=== PATIENT | female | born 1955 | race Caucasian/White ===

== ENCOUNTER 2018-06-28 09:16 | Inpatient (IN) | payer BC ==
[2018-06-28 09:30] VITALS: BMI 21.9
--- NOTE | 2018-06-28 09:38 | PDOC ---
History of Present Illness - General Chief Complaint: Vomiting/Diarrhea Stated Complaint: COLD SYMPTOMS Time Seen by Provider: 06/28/18 09:37 History Source: Patient Exam Limitations: No Limitations - History of Present Illness Initial Comments: 06/28/18 11:11 62 year old woman with no significant medical history presents with 10 episodes of nbnb vomiting and 10 episodes of watery diarrhea, that onset at around midnight after eating duck, reid, and creme brulee at a restaurant. She notes associated lower abdominal and upper abdominal cramping rated at a scale of 5/ 10. She denies any fevers, chest pain shortness of breath. She denies taking any medications. She denies any recent travel. Past History - Past Medical History Allergies/Adverse Reactions: Allergies Allergy/AdvReac Type Severity Reaction Status Date / Time tramadol [From [facility]] Allergy Verified 06/28/18 09:29 Home Medications: Ambulatory Orders Acetaminophen [Tylenol .Regular Strength -] 650 mg PO Q6H PRN #42 tablet Ibuprofen [Motrin -] 600 mg PO Q6H PRN #21 tablet 07/02/18 COPD: No - Suicide/Smoking/Psychosocial Hx Smoking History: Never smoked Review of Systems - Review of Systems Able to Perform ROS?: Yes Is the patient limited Tajik proficient: No Constitutional: No: Chills, Diaphoresis, Fever HEENTM: No: Blurred Vision, Tinnitus Respiratory: No: Cough, Orthopnea, Shortness of Breath Cardiac (ROS): No: Chest Pain, Lightheadedness, Palpitations, Syncope ABD/GI: Yes: Diarrhea, Nausea, Vomiting. No: Constipated : No: Burning, Dysuria, Hematuria, Incontinence Musculoskeletal: No: Back Pain Neurological: No: Headache, Numbness, Paresthesia, Tingling *Physical Exam - Vital Signs Last Vital Signs Temp Pulse Resp BP Pulse Ox 98 F 103 H 20 155/89 99 06/28/18 09:18 06/28/18 09:18 06/28/18 09:18 06/28/18 09:18 06/28/18 09:18 - Physical Exam Comments: 06/28/18 12:22 GENERAL: Awake, alert, and fully oriented, in no acute distress HEAD: No signs of trauma, normocephalic, atraumatic EYES: EOMI, sclera anicteric, conjunctiva clear ENT: oropharynx clear without exudates. Moist mucosa NECK: Normal ROM, supple, LUNGS: No distress, speaks full sentences, clear to auscultation bilaterally HEART: Regular rate and rhythm, normal S1 and S2, no murmurs, rubs or gallops, peripheral pulses normal and equal bilaterally. ABDOMEN: Soft, nontender, normoactive bowel sounds. No guarding, no rebound. No masses EXTREMITIES : Normal inspection, Normal range of motion, no edema. No clubbing or cyanosis. NEUROLOGICAL: Cranial nerves II through XII grossly intact. Normal speech, normal gait, no focal sensorimotor deficits SKIN: Warm, Dry, normal turgor, no rashes or lesions noted Moderate Sedation - Procedure Monitoring Vital Signs: Procedure Monitoring Vital Signs Temperature 98 F 06/28/18 09:18 Pulse Rate 103 H 06/28/18 09:18 Respiratory Rate 20 06/28/18 09:18 Blood Pressure 155/89 06/28/18 09:18 O2 Sat by Pulse Oximetry (%) 99 06/28/18 09:18 ED Treatment Course - LABORATORY CBC & Chemistry Diagram: 07/02/18 07:35 07/02/18 07:35 Medical Decision Making - Medical Decision Making 06/28/18 12:22 62 year old woman with no significant medical history presents with 10 episodes of nbnb vomiting and 10 episodes of watery diarrhea, that onset at around midnight after eating duck, reid, and creme brulee at a restaurant. She notes associated lower abdominal and upper abdominal cramping rated at a scale of 5/ 10. She denies any fevers. She denies taking any medications. She denies any recent travel. ED Course: viral gastroenteritis vs pancreatiits r/o acs cbc, cmp, elg labwork wnl neutrophil % 96 concerning for bacterial cause will order Abd Pelvis CT 06/28/18 17:08 CT with concern for appendicitis Surgery Dr. Santos called evaluated patient concern for early appendicitis Patient with low grade temperature and tachycardia Patient desires to wait until tomorrow rather than undergo surgery tonight Will admit patient for observation *DC/Admit/Observation/Transfer Diagnosis at time of Disposition: Appendicitis Qualifiers: Appendicitis type: acute appendicitis Acute appendicitis type: other Qualified Code(s): K35.890 - Other acute appendicitis without perforation or gangrene - Discharge Dispostion Disposition: HOME Condition at time of disposition: Improved Decision to Admit order: Yes - Prescriptions - Referrals - Patient Instructions - Post Discharge Activity
[2018-06-28] MEDS ORDERED: ONDANSETRON 4 MG/2 ML VIAL IVPUSH ONE ×2 (10:30→16:38)
[2018-06-28] MEDS ORDERED: SODIUM CHLORIDE 1,000 ML IV SCH ×3 (10:30→15:15)
[2018-06-28] MEDS ORDERED: ONDANSETRON 4 MG/2 ML VIAL ONE ×3 (10:32→19:54)
[2018-06-28 10:50] LABS: BASO % 0.3 % (0-2.0); HEMATOCRIT 48.1 % (32.4-45.2); HEMOGLOBIN 16.8 GM/dL (10.7-15.3); LYMPH % 1.5 % (8-40); MCH 31.6 pg (25.7-33.7); MCHC 34.9 g/dl (32.0-36.0); MEAN CELL VOLUME 90.5 fl (80-96); MEAN PLT VOLUME 8.7 fl (7.5-11.1); MONO % 2.2 % (3.8-10.2); PLATELET COUNT 184 K/MM3 (134-434); RBC 5.31 M/mm3 (3.60-5.2); RDW 13.1 % (11.6-15.6); WHITE BLOOD COUNT 10.2 K/mm3 (4.0-10.0)
[2018-06-28 11:18] LABS: ALBUMIN 4.6 g/dl (3.4-5.0); ALK PHOS 181 U/L (45-117); ANION GAP 6 MMOL/L (8-16); BILIRUBIN,TOTAL 1.3 mg/dL (0.2-1); BLOOD UREA NITROGEN 17 mg/dL (7-18); CALCIUM 9.5 mg/dL (8.5-10.1); CHLORIDE 102 mmol/L (98-107); CO2 29 mmol/L (21-32); CREATININE 0.7 mg/dL (0.55-1.3); GLUCOSE,RANDOM 155 mg/dL (74-106); POTASSIUM 3.8 mmol/L (3.5-5.1); SGOT/AST 20 U/L (15-37); SGPT/ALT 27 U/L (13-61); SODIUM 138 mmol/L (136-145); TOT PROT 7.7 g/dl (6.4-8.2)
[2018-06-28 11:32] LABS: LIPASE 104 U/L (73-393)
--- NOTE | 2018-06-28 12:28 | PDOC ---
Attending Attestation - HPI HPI: 06/28/18 12:29 The patient is a 62 year old female, with no significant past medical history, who presents to the emergency department today with vomiting and diarrhea, that began last night. The patient reports she ate Pt and creme brulee at a restaurant last night, and when she returned home she began vomiting at 11:30 pm. The patient notes she experienced 10x episodes of vomiting, nonbilious and nonbloody, and 10x episodes of watery diarrhea, nonbloody. The patient notes associated chills and headache. The patient reports a lower abdominal pain and tenderness that she has experienced previously.The patient reports she tried to see her PCP but he advised her to come to the ER because she could not tolerate any PO intake. The patient denies recent fevers or dizziness. Denies recent dysuria, frequency, urgency or hematuria. Denies recent chest pain or shortness of breath. Allergies: tramadol Past surgical history: Hysterectomy Primary Care Physician: Dr. Ghanshyam Mcdonald # [phone] <Leti Van - Last Filed: 06/28/18 12:43> - Resident Resident Name: Ary Martínez - ED Attending Attestation I have performed the following: I have examined & evaluated the patient, The case was reviewed & discussed with the resident, I agree w/resident's findings & plan, Exceptions are as noted - Physicial Exam PE: 06/28/18 12:23 awake alert NAD dry mucous membranes. lungs clear bilaterally . heart reg tachycardia. abd soft ( mild suprapubic rlq ttp. pt states is chronic ) otherwise nt nd. ext wwp no edema. no calf tenderness skin warm and dry. - Medical Decision Making 06/28/18 12:24 62 yo F no pmhx here with c/o multiple episodes of nonbilious nonbloody vomiting and diarrhea, no sick contacts. felt was from food she ate at a restaurat. also c/o mild headahce. body aches and chills. no urinary complaints. no mod factors. 06/28/18 12:26 on exam pt mild tenderness states this pain is chronic she has had ever since her hysterectomy. has been evaluated in the past with us. differential viral gasritis ( likley as multiple pt with same sxs seen recently) pancreatitis. dehydration electrolyte abnormality. plan zofran, fluids, labs, reassess. 06/28/18 13:23 pt feeling much improved. dc home. labs all unremarkable. dc home. 06/28/18 14:12 pt with left shift 90 nuetrophils on WBC, will obtain cta/p r/o ilieitis, colitis or appendicitis. pt unable to provide stool sample. ua sent to r/o uti. <Pau Ang - Last Filed: 06/28/18 14:13> Attestations - Attestations 06/28/18 12:43 Documentation prepared by Leti Van, acting as director medical economics for Pau Ang MD. <Leti Van - Last Filed: 06/28/18 12:43>
[2018-06-28 12:58] LABS: ANISOCYTOSIS 0; HELMET CELLS 0; HOWELL-JOLLY BODIES 0; MACROCYTOSIS 0; OVALOCYTE 0; PLATELET ESTIMATE NORMAL; ROULEAU 0; SICKELED CELLS 0; TARGET CELLS 0; TEAR DROP CELLS 0; TOXIC GRANULATION 0
[2018-06-28 14:14] LABS: URINE APPEARANCE CLEAR; URINE BILIRUBIN NEGATIVE (<2.0 mg/dL); URINE COLOR YELLOW; URINE GLUCOSE (UA) NEGATIVE (NEGATIVE); URINE KETONE 1+ (NEGATIVE); URINE LEUK ESTERASE NEGATIVE (NEGATIVE); URINE NITRITE NEGATIVE (NEGATIVE); URINE PROTEIN NEGATIVE (NEGATIVE); URINE UROBILINOGEN NEGATIVE mg/dL (0.2-1.0)
[2018-06-28 14:21] LABS: URINE MUCUS RARE
--- NOTE | 2018-06-28 17:10 | CONSULT ---
Consult Consult Specialty:: General Surgery Referred by:: Dr. Martínez Reason for Consultation:: n/v, diarrhea, ?appendicitis - History of Present Illness Chief Complaint: n/v, diarrhea, chills, abd pain History of Present Illness: 62yo F with no sig PMH, surgical history significant for tonsillectomy and lap- assisted/open partial hysterectomy with BSO, who has intermittent RLQ pain since then, investigated by her doctors with US, hernia ruled out, thought to be maybe gas pains or something related to her previous surgery, but comes and goes without clear pattern; she presents with onset around midnight of headache , followed by N/V, diarrhea, and chills, with repeating cycles of same, prompting ER visit today. She describes pain/discomfort with straining to defecate, but that goes away once she is done. Diarrhea was brown, then loose, then yellowish. Vomiting was her dinner from last night. 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 She takes no regular meds, and has no urinary complaints; she also has some upper abdominal pain/discomfort after all the vomiting, and has had some discomfort in her upper back as well. She feels very dry and thirsty, and is also feeling some nasal congestion, which she thinks might be from allergies. In the ER, she was initially afebrile , with wbc 10.6, left shifted, Hb elevated at almost 17, ketones in urine, consistent with dehydration, and has had Zofran with improvement in her nausea. She has had Percocet in the past (with hyst) and states she does NOT react well to it, and does not want narcotics if possible. Tramadol causes a rash/ breakout. CT was done with IV but no oral contrast, showing some retained stool , mildly dilated small and large bowel but no clear obstruction, appendix difficult to identify without enteral contrast, but possibly a dilated loop next to the cecum which could be an abnormal appendix. This was reviewed with radiology and noted to be suggestive of an appendix with a dilated tip at almost 10mm, though surrounding fat is not clearly abnormal, consistent with possible early appendicitis. Surgery was asked to evaluate. She is seen and examined in ER holding, with the above history elicited. She is still feeling chilled, temp is ~100F; IV fluids are running. - History Source Limitations to Obtaining History: No Limitations - Past Medical History Reproductive: Yes: Postmenopausal - Past Surgical History Past Surgical History: Yes: Hysterectomy (laparoscopic-assisted/open partial hyst with BSO 2004), Oopherectomy, Tonsillectomy - Alcohol/Substance Use Hx Alcohol Use: Yes (social) History of Substance Use: reports: None - Smoking History Smoking history: Former smoker (from age [age] only) Have you smoked in the past 12 months: No - Social History Usual Living Arrangement: Alone ADL: Independent Occupation: stenographic court reporter Home Medications - Allergies Allergies/Adverse Reactions: Allergies Allergy/AdvReac Type Severity Reaction Status Date / Time tramadol [From Ultram] Allergy Verified 06/28/18 09:29 - Home Medications Home Medications (free text): NO home meds - ER Rx will be d/c'd Family Disease History - Family Disease History Family History: Unremarkable (noncontributory) Review of Systems - Review of Systems Constitutional: reports: Chills Eyes: reports: Other (uses reading glasses). denies: Recent Change in Vision HENT: reports: Nasal Congestion. denies: Difficult Swallowing, Throat Pain Neck: denies: Swollen Glands, Tenderness Cardiovascular: denies: Chest Pain, Palpitations Respiratory: denies: Cough, SOB Gastrointestinal: reports: Abdominal Pain, Diarrhea (with hpi), Nausea (with hpi ), Vomiting (with hpi). denies: Constipation Genitourinary: denies: Burning, Dysuria Musculoskeletal: reports: Back Pain (between shoulder blades, ?from vomiting). denies: Joint Pain, Muscle Pain Integumentary: denies: Change in Color, Rash Neurological: reports: Headache. denies: Dizziness Psychiatric: denies: Anxiety, Depression Physical Exam Vital Signs: Vital Signs Temperature 98 F 06/28/18 09:18 Pulse Rate 103 H 06/28/18 09:18 Respiratory Rate 20 06/28/18 09:18 Blood Pressure 155/89 06/28/18 09:18 O2 Sat by Pulse Oximetry (%) 99 06/28/18 10:55 Constitutional: Yes: Well Nourished, No Distress, Calm Eyes: Yes: Conjunctiva Clear, EOM Intact HENT: Yes: Atraumatic, Normocephalic Neck: Yes: Supple, Trachea Midline Cardiovascular: Yes: Tachycardia. No: Pulse Irregular Respiratory: Yes: Regular, CTA Bilaterally Gastrointestinal: Yes: Soft, Hypoactive Bowel Sounds, Tenderness (mild epigastric, mild RLQ just above right end of Pfannenstiel scar, focal without rebound or guarding), Other (well-healed Pfannenstiel and umbilical laparoscopic scars). No: Distention, Vomiting ...Rectal Exam: Yes: Deferred Renal/: No: CVA Tenderness - Left, CVA Tenderness - Right Musculoskeletal: No: Joint Stiffness, Joint Swelling Extremities: No: Cool, Cyanosis Edema: No Peripheral Pulses WNL: Yes Integumentary: No: Jaundice, Rash Neurological: Yes: Alert, Oriented Psychiatric: Yes: Alert, Oriented Labs: CBC, BMP 06/28/18 10:44 06/28/18 10:44 CMP Sodium 138 mmol/L (136-145) 06/28/18 10:44 Potassium 3.8 mmol/L (3.5-5.1) 06/28/18 10:44 Chloride 102 mmol/L (98-107) 06/28/18 10:44 Carbon Dioxide 29 mmol/L (21-32) 06/28/18 10:44 Anion Gap 6 MMOL/L (8-16) L 06/28/18 10:44 BUN 17 mg/dL (7-18) 06/28/18 10:44 Creatinine 0.7 mg/dL (0.55-1.3) 06/28/18 10:44 Creat Clearance w eGFR > 60 (>60) 06/28/18 10:44 Random Glucose 155 mg/dL (74-106) H 06/28/18 10:44 Calcium 9.5 mg/dL (8.5-10.1) 06/28/18 10:44 Total Bilirubin 1.3 mg/dL (0.2-1) H 06/28/18 10:44 AST 20 U/L (15-37) 06/28/18 10:44 ALT 27 U/L (13-61) 06/28/18 10:44 Alkaline Phosphatase 181 U/L (45-117) H 06/28/18 10:44 Total Protein 7.7 g/dl (6.4-8.2) 06/28/18 10:44 Albumin 4.6 g/dl (3.4-5.0) 06/28/18 10:44 Lipase 104 U/L (73-393) 06/28/18 10:44 Urine Test Results Urine Color Yellow 06/28/18 14:03 Urine Appearance Clear 06/28/18 14:03 Urine pH 6.0 (5.0-8.0) 06/28/18 14:03 Ur Specific [place] 1.021 (1.010-1.035) 06/28/18 14:03 Urine Protein Negative (NEGATIVE) 06/28/18 14:03 Urine Glucose (UA) Negative (NEGATIVE) 06/28/18 14:03 Urine Ketones 1+ (NEGATIVE) H 06/28/18 14:03 Urine Blood 1+ (NEGATIVE) H 06/28/18 14:03 Urine Nitrite Negative (NEGATIVE) 06/28/18 14:03 Urine Bilirubin Negative (<2.0 mg/dL) 06/28/18 14:03 Ur Leukocyte Esterase Negative (NEGATIVE) 06/28/18 14:03 Urine Mucus Rare 06/28/18 14:03 dehydrated by labs wbc left shifted (>90% neutrophils) UA dry but negative Imaging - Results Cat Scan: Report Reviewed, Image Reviewed (images personally reviewed and reviewed with Dr. Moy/RAD - no enteral contrast, appendix appears to have dilated tip at 10mm, no clear surrounding inflammatory changes but difficult to evaluate, no obstruction, no free air or fluid) Problem List - Problems (1) Right lower quadrant abdominal tenderness without rebound tenderness Assessment/Plan: possibly early appendicitis patient offered laparoscopic possible open appendectomy tonight she prefers to wait and see how she feels by tomorrow ok for observation on medical service strict NPO - no ice chips, no water, no meds generous IV fluid hydration trend labs in am, obtain PT, T&S in am NO antibiotics NO narcotics ok for IV tylenol prn for pain if needed serial exams VS q4H GI/DVT prophylaxis will follow up in am please call if pt's condition changes or deteriorates abruptly Code(s): R10.813 - RIGHT LOWER QUADRANT ABDOMINAL TENDERNESS (2) Dehydration Assessment/Plan: see above, IVF Code(s): E86.0 - DEHYDRATION (3) Nausea and vomiting Assessment/Plan: zofran prn ok Code(s): R11.2 - NAUSEA WITH VOMITING, UNSPECIFIED Qualifiers: Vomiting type: unspecified Vomiting Intractability: non-intractable Qualified Code(s): R11.2 - Nausea with vomiting, unspecified (4) Diarrhea Assessment/Plan: check stool studies - culture, O&P, wbc Code(s): R19.7 - DIARRHEA, UNSPECIFIED Qualifiers: Diarrhea type: functional diarrhea Qualified Code(s): K59.1 - Functional diarrhea
--- NOTE | 2018-06-28 17:50 | HP ---
CHIEF COMPLAINT: right lower abdomen pain, nausea, vomiting with dry heaving PCP:Dr. Ghanshyam Mcdonald HISTORY OF PRESENT ILLNESS: Patient is a 62 year old female with no significant past medical history and on no home medications. She presents to [facility] with reports of approximately 10 episodes of nausea, vomiting (nonbilious and nonbloody) with dry heaving and watery diarrhea, nonbloody. She tells me that this started at midnight after going out and eating at a restaurant. Since then she has had lower abdominal pain and tenderness and abdominal cramping. ER labs reveal normal electrolyte panel, K 3.8, normal kidney function. She was noted to have an elevated bili of 1.3 and alk phos of 181. Mild leukocytosis with hemoconcentration and elevated neutrophils. An abdomen/ct scan without contrast shows dilated loops in adjacent to the cecum that could represent an abnormal appendix. She was seen and evaluated by surgery. Notes reviewed. Patient to consider surgical options tomorrow. We will fluid resuscitate patient, monitor vitals q4, manage her pain with IV tylenol and manage nausea/vomiting with zofran and IV hydration. She will be keep as a strict NPO overnight. Further plans per surgery. POC reviewed with patient who is in agreement. ER notable for: (1) stable vitals, afebrile (2) abd ct montero with possible abnormal appendix. (3) Recent Travel: none reported PAST MEDICAL HISTORY: none reported PAST SURGICAL HISTORY: Hysterectomy Social History: Smoking: none Alcohol: none Drugs: none Family History: Allergies tramadol [From Ultram] Allergy (Verified 06/28/18 09:29) HOME MEDICATIONS: none REVIEW OF SYSTEMS PHYSICAL EXAMINATION Vital Signs - 24 hr 06/28/18 06/28/18 09:18 10:55 Temperature 98 F Pulse Rate 103 H Respiratory 20 Rate Blood Pressure 155/89 O2 Sat by Pulse 99 99 Oximetry (%) GENERAL: Awake, alert, and fully oriented, in no acute distress. HEAD: Normal with no signs of trauma. EYES: Pupils equal, round and reactive to light, extraocular movements intact, sclera anicteric, conjunctiva clear. No lid lag. EARS, NOSE, THROAT: Ears normal, nares patent, oropharynx clear without exudates.dry mucous membranes. NECK: Normal range of motion, supple without lymphadenopathy, JVD, or masses. LUNGS: Breath sounds equal, clear to auscultation bilaterally. No wheezes, and no crackles. No accessory muscle use. HEART: Regular rate and rhythm, normal S1 and S2 without murmur, rub or gallop. ABDOMEN: Soft, tender on right upper and lower quadrants. no distention. MUSCULOSKELETAL: Normal range of motion at all joints. No bony deformities or tenderness. No CVA tenderness. UPPER EXTREMITIES: No clubbing. No peripheral edema. LOWER EXTREMITIES: No calf tenderness. No peripheral edema. NEUROLOGICAL: Normal speech. Normal gait. PSYCHIATRIC: Cooperative. Good eye contact. Appropriate mood and affect. SKIN: Warm, dry, normal turgor, no rashes or lesions noted, normal capillary refill. Laboratory Results - last 24 hr 06/28/18 06/28/18 06/28/18 10:44 10:44 14:03 WBC 10.2 H RBC 5.31 H Hgb 16.8 H Hct 48.1 H MCV 90.5 MCH 31.6 MCHC 34.9 RDW 13.1 Plt Count 184 MPV 8.7 Absolute Neuts (auto) 9.8 H Neutrophils % 96.0 H Neutrophils % (Manual) 94.0 H Band Neutrophils % 2.0 Lymphocytes % 1.5 L Lymphocytes % (Manual) 1.0 L Monocytes % 2.2 L Monocytes % (Manual) 3 L Eosinophils % 0.0 Eosinophils % (Manual) 0.0 Basophils % 0.3 Basophils % (Manual) 0.0 Myelocytes % (Man) 0 Promyelocytes % (Man) 0 Blast Cells % (Manual) 0 Nucleated RBC % 0 Metamyelocytes 0 Hypochromia 0 Toxic Granulation 0 Dohle Bodies 0 Platelet Estimate Normal Polychromasia 0 Poikilocytosis 0 Basophilic Stippling 0 Anisocytosis 0 Microcytosis 0 Macrocytosis 0 Spherocytes 0 Sickle Cells 0 Target Cells 0 Tear Drop Cells 0 Ovalocytes 0 Stomatocytes 0 Helmet Cells 0 [place] Bodies 0 [place] Rings 0 [place] Cells 0 Acanthocytes (Spur) 0 Rouleaux 0 Fragmented RBCs 0 Schistocytes 0 Sodium 138 Potassium 3.8 Chloride 102 Carbon Dioxide 29 Anion Gap 6 L BUN 17 Creatinine 0.7 Creat Clearance w eGFR > 60 Random Glucose 155 H Calcium 9.5 Total Bilirubin 1.3 H AST 20 ALT 27 Alkaline Phosphatase 181 H Total Protein 7.7 Albumin 4.6 Lipase 104 Urine Color Yellow Urine Appearance Clear Urine pH 6.0 Ur Specific [place] 1.021 Urine Protein Negative Urine Glucose (UA) Negative Urine Ketones 1+ H Urine Blood 1+ H Urine Nitrite Negative Urine Bilirubin Negative Urine Urobilinogen Negative Ur Leukocyte Esterase Negative Urine WBC (Auto) 1 Urine RBC (Auto) 7 Urine Mucus Rare ASSESSMENT/PLAN: Patient is a 62 year old female with no significant past medical history and on no home medications. She presents to [facility] with reports of approximately 10 episodes of nausea, vomiting with dry heaving. She tells me that this started at midnight after going out and eating at a restaurant. Since then she has had lower abdominal pain and tenderness and abdominal cramping. ER labs reveal normal electrolyte panel, K 3.8, normal kidney function. She was noted to have an elevated bili of 1.3 and alk phos of 181. Mild leukocytosis with hemoconcentration and elevated neutrophils. Normal lipase. An abdomen/ct montero without contrast shows dilated loops in adjacent to the cecum that could represent an abnormal appendix. She was seen and evaluated by surgery. Notes reviewed. Patient to consider surgical options tomorrow. We will fluid resuscitate patient, monitor vitals q4, manage her pain with IV tylenol and manage nausea/vomiting with zofran and IV hydration. She will be keep as a strict NPO overnight. Further plans per surgery. POC reviewed with patient who is in agreement. Abdominal pain: Abnormal appendix seen on CT imaging. Patient to consider surgery tomorrow, refusing surgical interventions today. She is on LR @ 125cc/hr, zofran for nausea. protonix for GI protection. Stool studies ordered. Will prep for OR: - blood cultures - urine cultures - chest xray - type and screen - pt/inr - ekg - monitor vitals q 4 hours ordered - pain management with tylenol IV - incentive spirometer early teaching fen Lactate Ringers @ 125cc/hr Monitor electrolytes daily NPO, advance diet per surgery prophy SCDs disposition. full code. Visit type - Emergency Visit Emergency Visit: Yes ED Registration Date: 06/28/18 Care time: The patient presented to the Emergency Department on the above date and was hospitalized for further evaluation of their emergent condition. - New Patient This patient is new to me today: Yes Date on this admission: 06/28/18 - Critical Care Critical Care patient: No
[2018-06-28] MEDS ORDERED: LACTATED RINGERS SOLUTION 1,000 ML/1,000 ML INFUS.BAG IV SCH (18:00)
[2018-06-28] MEDS ORDERED: PANTOPRAZOLE SODIUM 40 MG VIAL IVPUSH ONE (18:09)
[2018-06-28] MEDS ORDERED: ACETAMINOPHEN 1000 MG/100 ML VIAL (NON FORMULARY) IVPB PRN (18:09)
[2018-06-28] MEDS ORDERED: PANTOPRAZOLE SODIUM 40 MG/100 ML BAG IVPB ONE (18:11)
[2018-06-28] MEDS ORDERED: ONDANSETRON 4 MG/2 ML VIAL IVPUSH PRN ×2 (18:45→20:34)
[2018-06-28] MEDS ORDERED: LORazepam 2 MG/ML SDV VIAL IVPUSH ONE (20:34)
[2018-06-28] MEDS: LACTATED RINGERS SOLUTION 1,000 ML/1,000 ML INFUS.BAG IV SCH (21:59)
[2018-06-28] MEDS: ACETAMINOPHEN 1000 MG/100 ML VIAL (NON FORMULARY) IVPB PRN (21:59)
--- NOTE | 2018-06-28 22:04 | EKG ---
Test Reason : Blood Pressure : / mmHG Vent. Rate : 093 BPM Atrial Rate : 093 BPM P-R Int : 148 ms QRS Dur : 084 ms QT Int : 358 ms P-R-T Axes : 048 -09 027 degrees QTc Int : 445 ms NORMAL SINUS RHYTHM NONSPECIFIC ST AND T WAVE ABNORMALITY ABNORMAL ECG NO PREVIOUS ECGS AVAILABLE Confirmed by CRYS MOSCOSO, ALMA DELIA ([id number]) on 06/28/2018 10:03:47 PM Referred By: Confirmed By:ALMA DELIA SPANGLER MD
[2018-06-29] MEDS: ACETAMINOPHEN 1000 MG/100 ML VIAL (NON FORMULARY) IVPB PRN (06:21)
[2018-06-29 08:29] LABS: BASO % 0.1 % (0-2.0); HEMATOCRIT 35.5 % (32.4-45.2); HEMOGLOBIN 12.1 GM/dL (10.7-15.3); LYMPH % 5.6 % (8-40); MCH 30.6 pg (25.7-33.7); MCHC 33.9 g/dl (32.0-36.0); MEAN CELL VOLUME 90.2 fl (80-96); MEAN PLT VOLUME 8.6 fl (7.5-11.1); MONO % 9.6 % (3.8-10.2); NEUT % 84.7 % (42.8-82.8); PLATELET COUNT 143 K/MM3 (134-434); RBC 3.94 M/mm3 (3.60-5.2); RDW 12.9 % (11.6-15.6); WHITE BLOOD COUNT 6.5 K/mm3 (4.0-10.0)
[2018-06-29 08:44] LABS: INR 1.17 (0.83-1.09); PROTHROMBIN TIME (PATIENT) 13.8 SEC (9.7-13.0)
[2018-06-29 08:54] LABS: ALBUMIN 3.2 g/dl (3.4-5.0); ALK PHOS 116 U/L (45-117); ANION GAP 7 MMOL/L (8-16); BILIRUBIN,TOTAL 0.7 mg/dL (0.2-1); BLOOD UREA NITROGEN 8 mg/dL (7-18); CALCIUM 8.2 mg/dL (8.5-10.1); CHLORIDE 108 mmol/L (98-107); CO2 26 mmol/L (21-32); CREATININE 0.6 mg/dL (0.55-1.3); GLUCOSE,RANDOM 101 mg/dL (74-106); MAGNESIUM 1.8 mg/dL (1.8-2.4); POTASSIUM 3.4 mmol/L (3.5-5.1); SGOT/AST 10 U/L (15-37); SGPT/ALT 18 U/L (13-61); SODIUM 140 mmol/L (136-145); TOT PROT 5.4 g/dl (6.4-8.2)
[2018-06-29] MEDS: PANTOPRAZOLE SODIUM 40 MG VIAL IVPUSH SCH (10:58)
[2018-06-29] MEDS: KCL 10 MEQ IVPB 10 MEQ/100 ML INFUS.BAG IVPB SCH ×2 (10:58→13:37)
--- NOTE | 2018-06-29 12:05 | PN ---
Physical Exam: SUBJECTIVE: Patient seen and examined at the bedside. OBJECTIVE: 24 hour events: febrile overnight still having nausea wbc normalized monitor vitals q 4 Patient c/o nausea/vomiting and diarrhea with watery BM 4 times overnight-stool studies sent. Vital Signs Period Temp Pulse Resp BP Sys/Vargas Pulse Ox Last 24 Hr 98.9 F-101.7 F 76-97 18-22 128-141/75-92 95-97 GENERAL: Awake, alert, and fully oriented, in no acute distress. HEAD: Normal with no signs of trauma. EYES: Pupils equal, round and reactive to light, extraocular movements intact, sclera anicteric, conjunctiva clear. No lid lag. EARS, NOSE, THROAT: Ears normal, nares patent, oropharynx clear without exudates.dry mucous membranes. NECK: Normal range of motion, supple without lymphadenopathy, JVD, or masses. LUNGS: Breath sounds equal, clear to auscultation bilaterally. No wheezes, and no crackles. No accessory muscle use. HEART: Regular rate and rhythm, normal S1 and S2 without murmur, rub or gallop. ABDOMEN: Soft, tender on right upper and lower quadrants. no distention. MUSCULOSKELETAL: Normal range of motion at all joints. No bony deformities or tenderness. No CVA tenderness. UPPER EXTREMITIES: No clubbing. No peripheral edema. LOWER EXTREMITIES: No calf tenderness. No peripheral edema. NEUROLOGICAL: Normal speech. Normal gait. PSYCHIATRIC: Cooperative. Good eye contact. Appropriate mood and affect. SKIN: Warm, dry, normal turgor, no rashes or lesions noted, normal capillary refill. Laboratory Results - last 24 hr 06/28/18 06/28/18 06/28/18 10:44 10:44 14:03 WBC RBC Hgb Hct MCV MCH MCHC RDW Plt Count MPV Absolute Neuts (auto) Neutrophils % Neutrophils % (Manual) 94.0 H Band Neutrophils % 2.0 Lymphocytes % Lymphocytes % (Manual) 1.0 L Monocytes % Monocytes % (Manual) 3 L Eosinophils % Eosinophils % (Manual) 0.0 Basophils % Basophils % (Manual) 0.0 Myelocytes % (Man) 0 Promyelocytes % (Man) 0 Blast Cells % (Manual) 0 Nucleated RBC % Metamyelocytes 0 Hypochromia 0 Toxic Granulation 0 Dohle Bodies 0 Platelet Estimate Normal Polychromasia 0 Poikilocytosis 0 Basophilic Stippling 0 Anisocytosis 0 Microcytosis 0 Macrocytosis 0 Spherocytes 0 Sickle Cells 0 Target Cells 0 Tear Drop Cells 0 Ovalocytes 0 Stomatocytes 0 Helmet Cells 0 [place] Bodies 0 [place] Rings 0 [place] Cells 0 Acanthocytes (Spur) 0 Rouleaux 0 Fragmented RBCs 0 Schistocytes 0 PT with INR INR Sodium Potassium Chloride Carbon Dioxide Anion Gap BUN Creatinine Creat Clearance w eGFR Random Glucose Hemoglobin A1c % Calcium Magnesium Total Bilirubin AST ALT Alkaline Phosphatase Total Protein Albumin Urine Color Yellow Urine Appearance Clear Urine pH 6.0 Ur Specific [place] 1.021 Urine Protein Negative Urine Glucose (UA) Negative Urine Ketones 1+ H Urine Blood 1+ H Urine Nitrite Negative Urine Bilirubin Negative Urine Urobilinogen Negative Ur Leukocyte Esterase Negative Urine WBC (Auto) 1 Urine RBC (Auto) 7 Urine Mucus Rare Blood Type O POSITIVE Antibody Screen 06/29/18 06/29/18 06/29/18 07:30 07:30 07:30 WBC 6.5 RBC 3.94 Hgb 12.1 Hct 35.5 D MCV 90.2 MCH 30.6 MCHC 33.9 RDW 12.9 Plt Count 143 D MPV 8.6 Absolute Neuts (auto) 5.5 Neutrophils % 84.7 H Neutrophils % (Manual) Band Neutrophils % Lymphocytes % 5.6 L D Lymphocytes % (Manual) Monocytes % 9.6 D Monocytes % (Manual) Eosinophils % 0.0 Eosinophils % (Manual) Basophils % 0.1 Basophils % (Manual) Myelocytes % (Man) Promyelocytes % (Man) Blast Cells % (Manual) Nucleated RBC % 0 Metamyelocytes Hypochromia Toxic Granulation Dohle Bodies Platelet Estimate Polychromasia Poikilocytosis Basophilic Stippling Anisocytosis Microcytosis Macrocytosis Spherocytes Sickle Cells Target Cells Tear Drop Cells Ovalocytes Stomatocytes Helmet Cells [place] Bodies [place] Rings Chana Cells Acanthocytes (Spur) Rouleaux Fragmented RBCs Schistocytes PT with INR 13.80 H INR 1.17 H Sodium Potassium Chloride Carbon Dioxide Anion Gap BUN Creatinine Creat Clearance w eGFR Random Glucose Hemoglobin A1c % Calcium Magnesium Total Bilirubin AST ALT Alkaline Phosphatase Total Protein Albumin Urine Color Urine Appearance Urine pH Ur Specific [place] Urine Protein Urine Glucose (UA) Urine Ketones Urine Blood Urine Nitrite Urine Bilirubin Urine Urobilinogen Ur Leukocyte Esterase Urine WBC (Auto) Urine RBC (Auto) Urine Mucus Blood Type O POSITIVE Antibody Screen Negative 06/29/18 06/29/18 07:30 07:30 WBC RBC Hgb Hct MCV MCH MCHC RDW Plt Count MPV Absolute Neuts (auto) Neutrophils % Neutrophils % (Manual) Band Neutrophils % Lymphocytes % Lymphocytes % (Manual) Monocytes % Monocytes % (Manual) Eosinophils % Eosinophils % (Manual) Basophils % Basophils % (Manual) Myelocytes % (Man) Promyelocytes % (Man) Blast Cells % (Manual) Nucleated RBC % Metamyelocytes Hypochromia Toxic Granulation Dohle Bodies Platelet Estimate Polychromasia Poikilocytosis Basophilic Stippling Anisocytosis Microcytosis Macrocytosis Spherocytes Sickle Cells Target Cells Tear Drop Cells Ovalocytes Stomatocytes Helmet Cells [place] Bodies [place] Rings Chana Cells Acanthocytes (Spur) Rouleaux Fragmented RBCs Schistocytes PT with INR INR Sodium 140 Potassium 3.4 L Chloride 108 H Carbon Dioxide 26 Anion Gap 7 L BUN 8 Creatinine 0.6 Creat Clearance w eGFR > 60 Random Glucose 101 Hemoglobin A1c % 5.6 Calcium 8.2 L Magnesium 1.8 Total Bilirubin 0.7 AST 10 L ALT 18 Alkaline Phosphatase 116 Total Protein 5.4 L Albumin 3.2 L Urine Color Urine Appearance Urine pH Ur Specific [place] Urine Protein Urine Glucose (UA) Urine Ketones Urine Blood Urine Nitrite Urine Bilirubin Urine Urobilinogen Ur Leukocyte Esterase Urine WBC (Auto) Urine RBC (Auto) Urine Mucus Blood Type Antibody Screen Active Medications Generic Name Dose Route Start Last Admin Trade Name Freq PRN Reason Stop Dose Admin Acetaminophen 1,000 mg 06/28/18 21:03 06/29/18 06:21 Ofirmev Injection - IVPB 1,000 mg Q6H PRN Administration PAIN OR FEVER Lactated Ringer's 1,000 ml in 1,000 mls @ 125 mls/hr 06/28/18 20:00 06/28/18 21:59 Lactated Ringers Solution IV 125 mls/hr ASDIR ABRAHAM Administration Ondansetron HCl 4 mg 06/28/18 20:34 06/29/18 05:43 Zofran Injection IVPUSH 4 mg Q4H PRN Administration NAUSEA AND/OR VOMITING Pantoprazole Sodium 40 mg 06/29/18 10:00 06/29/18 10:58 Protonix Iv IVPUSH 40 mg DAILY ABRAHAM Administration ASSESSMENT/PLAN: Patient is a 62 year old female with no significant past medical history and on no home medications. She presents to [facility] with reports of approximately 10 episodes of nausea, vomiting with dry heaving after going out and eating at a restaurant. Since then she has had lower abdominal pain and tenderness and abdominal cramping. ER labs reveal normal electrolyte panel, K 3.8, normal kidney function. She was noted to have an elevated bili of 1.3 and alk phos of 181. Mild leukocytosis with hemoconcentration and elevated neutrophils. Normal lipase. An abdomen/ct montero without contrast shows dilated loops in adjacent to the cecum that could represent an abnormal appendix. She was seen and evaluated by surgery. ID: Sepsis: Met sepsis criteria on admission Still having fevers, tmax 101 Consider ID consult if continues to spike blood cultures ordered and pending Abdominal pain: Abnormal appendix seen on CT imaging. Patient for laparoscopic and possible open appendectomy tonight. Given pre -op antibiotics per surgery. Post op care: - incentive spirometer - early ambulation - advance diet per surgery - antibiotics per surgery - monitor vitals. labs. pain management. bowel regimen. fen Lactate Ringers @ 125cc/hr Monitor electrolytes daily NPO, advance diet per surgery prophy SCDs disposition. full code. Visit type - Emergency Visit Emergency Visit: Yes ED Registration Date: 06/29/18 Care time: The patient presented to the Emergency Department on the above date and was hospitalized for further evaluation of their emergent condition. - New Patient This patient is new to me today: No - Critical Care Critical Care patient: No - Discharge Referral Referred to [facility] No
[2018-06-29] MEDS: LACTATED RINGERS SOLUTION 1,000 ML/1,000 ML INFUS.BAG IV SCH ×2 (12:33→20:53)
--- NOTE | 2018-06-29 12:46 | PN ---
Progress Note, Physician History of Present Illness: Pt with abd pain, N/V, diarrhea, CT concerning for possible appendicitis. Pt did not want surgery last night, feels "a little better," but had T101.7 overnight, N/V and more diarrhea early this morning. Had tylenol and temp is down, pain is mild. Still not sure about wanting to have surgery. Neighbors are at bedside. - Current Medication List Current Medications: Active Medications Acetaminophen (Ofirmev Injection -) 1,000 mg IVPB Q6H PRN PRN Reason: PAIN OR FEVER Last Admin: 06/29/18 06:21 Dose: 1,000 mg Lactated Ringer's (Lactated Ringers Solution) 1,000 ml in 1,000 mls @ 125 mls/ hr IV ASDIR ABRAHAM Last Admin: 06/29/18 12:33 Dose: 125 mls/hr Ondansetron HCl (Zofran Injection) 4 mg IVPUSH Q4H PRN PRN Reason: NAUSEA AND/OR VOMITING Last Admin: 06/29/18 05:43 Dose: 4 mg Pantoprazole Sodium (Protonix Iv) 40 mg IVPUSH DAILY [facility] Last Admin: 06/29/18 10:58 Dose: 40 mg - Objective Vital Signs: Vital Signs Temperature 100.0 F H 06/29/18 07:00 Pulse Rate 76 06/29/18 07:00 Respiratory Rate 20 06/29/18 07:00 Blood Pressure 128/75 06/29/18 07:00 O2 Sat by Pulse Oximetry (%) 97 06/28/18 21:30 Constitutional: Yes: Well Nourished, No Distress, Anxious Eyes: Yes: Conjunctiva Clear, EOM Intact HENT: Yes: Atraumatic, Normocephalic Gastrointestinal: Yes: Soft, Tenderness (RLQ to deep palpation, no rebound or guarding, minimal epigastric (may be related to vomiting)). No: Distention Musculoskeletal: No: Joint Stiffness, Joint Swelling Extremities: No: Cool, Cyanosis Integumentary: Yes: Tattoos. No: Jaundice, Rash Neurological: Yes: Alert, Oriented Labs: CBC, BMP 06/29/18 07:30 06/29/18 07:30 INR, PTT INR 1.17 (0.83-1.09) H 06/29/18 07:30 better hydrated, wbc still with 85% neutrophils (2% bands yesterday) K being repleted INR, PTT INR 1.17 (0.83-1.09) H 06/29/18 07:30 Problem List - Problems (1) Right lower quadrant abdominal tenderness without rebound tenderness Assessment/Plan: wbc down but still with fevers, N/V, diarrhea stool studies not yet sent (per nurse, was told it was "too liquid") I believe this is consistent with early appendicitis repeat exam still with RLQ tenderness Discussed with patient risks, benefits and alternatives of laparoscopic possible open appendectomy, including but not limited to bleeding, infection, injury to adjacent structures, intestinal leak or injury, intraabdominal abscess , incisional hernia, need for further procedures; alternatives include antibiotics, delayed or no surgery - risks of this include failure of nonoperative therapy, perforation, sepsis, recurrence. Patient reluctant to proceed with operation but considering. Would like me to speak with her PMD. Left message for Dr. Ghanshyam Mcdonald to call me when he is not with patients. Will return to sign consent if patient decides to agree to OR. keep NPO/IVF no narcotics if pt going to surgery, will start antibiotics Code(s): R10.813 - RIGHT LOWER QUADRANT ABDOMINAL TENDERNESS (2) Dehydration Code(s): E86.0 - DEHYDRATION (3) Nausea and vomiting Code(s): R11.2 - NAUSEA WITH VOMITING, UNSPECIFIED Qualifiers: Vomiting type: unspecified Vomiting Intractability: non-intractable Qualified Code(s): R11.2 - Nausea with vomiting, unspecified (4) Diarrhea Code(s): R19.7 - DIARRHEA, UNSPECIFIED Qualifiers: Diarrhea type: functional diarrhea Qualified Code(s): K59.1 - Functional diarrhea
[2018-06-29] MEDS ORDERED: CEFOXITIN SODIUM 1 GM in DEXTROSE 5%-WATER - 100 ML IVPB ONE (16:46)
[2018-06-30] MEDS: LACTATED RINGERS SOLUTION 1,000 ML/1,000 ML INFUS.BAG IV SCH ×2 (01:00→06:58)
[2018-06-30] MEDS: CEFOXITIN SODIUM 1 GM in DEXTROSE 5%-WATER - 100 ML IVPB SCH ×5 (01:28→19:46)
[2018-06-30 07:54] LABS: BASO % 0.2 % (0-2.0); EOS % 0.3 % (0-4.5); HEMATOCRIT 35.9 % (32.4-45.2); HEMOGLOBIN 12.4 GM/dL (10.7-15.3); LYMPH % 15.1 % (8-40); MCH 30.8 pg (25.7-33.7); MCHC 34.6 g/dl (32.0-36.0); MEAN CELL VOLUME 88.9 fl (80-96); MEAN PLT VOLUME 9.8 fl (7.5-11.1); MONO % 14.4 % (3.8-10.2); PLATELET COUNT 137 K/MM3 (134-434); RBC 4.03 M/mm3 (3.60-5.2); RDW 12.6 % (11.6-15.6); WHITE BLOOD COUNT 5.7 K/mm3 (4.0-10.0)
[2018-06-30 08:12] LABS: BLOOD UREA NITROGEN 7 mg/dL (7-18); CHLORIDE 104 mmol/L (98-107); CO2 26 mmol/L (21-32); CREATININE 0.6 mg/dL (0.55-1.3); GLUCOSE,RANDOM 66 mg/dL (74-106); POTASSIUM 3.1 mmol/L (3.5-5.1); SODIUM 138 mmol/L (136-145)
[2018-06-30 08:13] LABS: ANION GAP 9 MMOL/L (8-16)
[2018-06-30] MEDS ORDERED: POTASSIUM CHLORIDE 10 MEQ PREMIX IVPB (POTASSIUM RIDER) IVPB SCH ×3 (09:00→13:30)
[2018-06-30] MEDS ORDERED: PT OWN MED DRAWER 7, Y5N ONE ×2 (09:51→16:35)
[2018-06-30] MEDS: PANTOPRAZOLE SODIUM 40 MG VIAL IVPUSH SCH (10:17)
[2018-06-30] MEDS: KCL 10 MEQ IVPB 10 MEQ/100 ML INFUS.BAG IVPB SCH ×5 (10:25→17:56)
[2018-06-30] MEDS ORDERED: ROCURONIUM BROMIDE 50 MG/5 ML VIAL ONE (12:53)
[2018-06-30] MEDS ORDERED: BENZOIN TINCTURE SWABSTICK TP ONE (12:53)
[2018-06-30] MEDS ORDERED: PROPOFOL 20 ML ONE ×2 (12:53)
[2018-06-30] MEDS ORDERED: MIDAZOLAM HCL 2 MG/2 ML SINGLE DOSE VIAL ONE (12:53)
[2018-06-30] MEDS ORDERED: LIDOCAINE HCL/PF 2% SDV 5ML VIAL ONE (12:54)
[2018-06-30] MEDS ORDERED: CEFOXITIN SODIUM 1 GM IVPB ONE (13:02)
[2018-06-30] MEDS ORDERED: SODIUM CHLORIDE 0.9% P/F 10 ML VIAL IJ ONE (13:11)
[2018-06-30] MEDS ORDERED: cefOXitin SODIUM 1 GM VIAL (RESTRICTED TO ID) IVPB ONE ×2 (13:11→13:19)
[2018-06-30] MEDS ORDERED: DEXAMETHASONE SOD PHOSPHATE 4 MG/1 ML VIAL ONE (13:14)
[2018-06-30] MEDS ORDERED: ACETAMINOPHEN INJECTION 100 ML IVPB ONE (13:16)
[2018-06-30] MEDS ORDERED: GLYCOPYRROLATE 0.2 MG/1 ML VIAL ONE ×2 (13:26→14:09)
[2018-06-30] MEDS ORDERED: BUPIVACAINE HCL/PF 0.5% (5MG/ML) 10 ML VIAL IJ ONE ×2 (13:30→14:04)
[2018-06-30] MEDS ORDERED: NEOSTIGMINE METHYLSULFATE 0.5 MG/ML - 10 ML MDV ONE (14:09)
--- NOTE | 2018-06-30 14:21 | OP ---
Operative Note - Note: Operative Date: 06/30/18 Pre-Operative Diagnosis: early appendicitis Operation: laparoscopic appendectomy Findings: mildly injected appendix, mildly thickened in midportion Post-Operative Diagnosis: Same as Pre-op Surgeon: James Santos Anesthesiologist/DISTRICT LEADER: Vamshi Bales Anesthesia: General, Local (10ml 0.5% marcaine) Specimens Removed: appendix to pathology Estimated Blood Loss (mls): 5 Drains & Tubes with Location: Kumar out at case end Drains, Volume Out (mls): 250 (UOP) Fluid Volume Replaced (mls): 400 (crystalloid) Operative Report Dictated: Yes
[2018-06-30] MEDS ORDERED: IBUPROFEN 800 MG/8 ML IJ IVPB ONE (14:23)
[2018-06-30] MEDS ORDERED: LACTATED RINGERS SOLUTION 1,000 ML/1,000 ML INFUS.BAG IV SCH ×2 (14:26→17:30)
[2018-06-30] MEDS ORDERED: ONDANSETRON 4 MG/2 ML VIAL IVPUSH PRN (14:26)
[2018-06-30] MEDS ORDERED: PROMETHAZINE HCL 25 MG/1 ML VIAL IVPUSH PRN (14:26)
[2018-06-30] MEDS ORDERED: LACTATED RINGERS SOLUTION 1,000 ML IV SCH (14:30)
[2018-06-30] MEDS ORDERED: GLYCOPYRROLATE 0.2 MG/1 ML VIAL IM PRN ×3 (15:03→17:30)
--- NOTE | 2018-06-30 17:52 | PN ---
Progress Note, Physician Chief Complaint: 24 HR EVENTS: -pt remains NPO for appendectomy -She reports resolution to nausea/vomiting/loose stools but remains fatigued -No fever overnight - Current Medication List Current Medications: Active Medications Acetaminophen (Tylenol -) 650 mg PO Q6H ABRAHAM Glycopyrrolate (Robinul Injection -) 0.2 mg IM Q6H PRN PRN Reason: PEPTIC ULCER Lactated Ringer's (Lactated Ringers Solution) 1,000 ml in 1,000 mls @ 75 mls/ hr IV ASDIR ABRAHAM Ibuprofen (Motrin -) 600 mg PO Q6H ABRAHAM Pantoprazole Sodium (Protonix Iv) 40 mg IVPUSH DAILY ABRAHAM - Objective Vital Signs: Vital Signs Temperature 97.9 F 06/30/18 17:42 Pulse Rate 72 06/30/18 17:42 Respiratory Rate 20 06/30/18 17:42 Blood Pressure 139/77 06/30/18 17:42 O2 Sat by Pulse Oximetry (%) 98 06/30/18 17:42 Constitutional: Yes: No Distress, Calm Eyes: Yes: Conjunctiva Clear, EOM Intact, PERRL HENT: Yes: Atraumatic, Normocephalic Neck: Yes: Supple, Trachea Midline Cardiovascular: Yes: Regular Rate and Rhythm Respiratory: Yes: Regular, CTA Bilaterally Gastrointestinal: Yes: Soft, Hypoactive Bowel Sounds ...Rectal Exam: Yes: Deferred Musculoskeletal: Yes: WNL Extremities: Yes: WNL Edema: No Peripheral Pulses WNL: Yes Peripheral Pulses: Left Radial: 2+, Right Radial: 2+, Left Doralis Pedis: 2+, Right Dorsalis Pedis: 2+ Integumentary: Yes: WNL Neurological: Yes: Alert, Oriented ...Motor Strength: WNL Psychiatric: Yes: Alert, Oriented Labs: CBC, BMP 06/30/18 06:35 06/30/18 06:35 INR, PTT INR 1.17 (0.83-1.09) H 06/29/18 07:30 Impression/Plan Impression/Plan: Abdominal pain: now improving Abnormal appendix seen on CT imaging. Patient for laparoscopic and possible open appendectomy tonight. Given pre -op antibiotics per surgery. Post op care: - incentive spirometer - early ambulation - advance diet per surgery - antibiotics per surgery - monitor vitals. labs. pain management. bowel regimen. fen Lactate Ringers @ 125cc/hr Monitor electrolytes daily NPO, advance diet per surgery prophy SCDs disposition. full code. Visit type - Emergency Visit Emergency Visit: Yes ED Registration Date: 06/29/18 Care time: The patient presented to the Emergency Department on the above date and was hospitalized for further evaluation of their emergent condition. - New Patient This patient is new to me today: Yes Date on this admission: 06/30/18 - Critical Care Critical Care patient: No - Discharge Referral Referred to [facility] Med [facility].C.: No
[2018-06-30] MEDS: ACETAMINOPHEN 325 MG TABLET (FP) PO SCH (17:54)
[2018-06-30] MEDS ORDERED: ACETAMINOPHEN 325 MG TABLET (FP) PO SCH (18:00)
[2018-06-30] MEDS ORDERED: IBUPROFEN 600 MG TABLET (FP) PO SCH (21:00)
[2018-06-30] MEDS: IBUPROFEN 600 MG TABLET (FP) PO SCH (21:29)
[2018-07-01] MEDS: ACETAMINOPHEN 325 MG TABLET (FP) PO SCH ×5 (00:37→23:33)
[2018-07-01] MEDS: IBUPROFEN 600 MG TABLET (FP) PO SCH ×4 (03:49→21:41)
[2018-07-01 08:50] LABS: HEMATOCRIT 36.3 % (32.4-45.2); HEMOGLOBIN 12.8 GM/dL (10.7-15.3); MCH 31.2 pg (25.7-33.7); MCHC 35.1 g/dl (32.0-36.0); MEAN PLT VOLUME 8.8 fl (7.5-11.1); PLATELET COUNT 204 K/MM3 (134-434); RBC 4.08 M/mm3 (3.60-5.2); RDW 12.3 % (11.6-15.6); WHITE BLOOD COUNT 7.4 K/mm3 (4.0-10.0)
[2018-07-01 09:20] LABS: ANION GAP 9 MMOL/L (8-16); BLOOD UREA NITROGEN 13 mg/dL (7-18); CALCIUM 8.6 mg/dL (8.5-10.1); CHLORIDE 99 mmol/L (98-107); CO2 28 mmol/L (21-32); CREATININE 0.8 mg/dL (0.55-1.3); GLUCOSE,RANDOM 91 mg/dL (74-106); POTASSIUM 3.4 mmol/L (3.5-5.1); SODIUM 135 mmol/L (136-145)
[2018-07-01] MEDS ORDERED: PANTOPRAZOLE SODIUM 40 MG VIAL IVPUSH SCH (10:00)
--- NOTE | 2018-07-01 14:08 | PN ---
Progress Note, Physician Chief Complaint: 24HR events -s/p lap appendectomy [Findings: mildly injected appendix, mildly thickened in midportion] -this morning patient endorses mid-abdomen and RLQ tenderness, she would like to remain another 24hrs for observation since she lives alone. -tolerated PO intake -ambulating to bathroom - Current Medication List Current Medications: Active Medications Acetaminophen (Tylenol -) 650 mg PO Q6H [facility] Last Admin: 07/01/18 12:00 Dose: 650 mg Glycopyrrolate (Robinul Injection -) 0.2 mg IM Q6H PRN PRN Reason: PEPTIC ULCER Lactated Ringer's (Lactated Ringers Solution) 1,000 ml in 1,000 mls @ 75 mls/ hr IV ASDIR [facility] Last Admin: 06/30/18 17:59 Dose: 75 mls/hr Ibuprofen (Motrin -) 600 mg PO Q6H [facility] Last Admin: 07/01/18 08:58 Dose: 600 mg Pantoprazole Sodium (Protonix Iv) 40 mg IVPUSH DAILY [facility] Last Admin: 07/01/18 10:49 Dose: 40 mg - Objective Vital Signs: Vital Signs Temperature 98.6 F 07/01/18 09:00 Pulse Rate 60 07/01/18 09:00 Respiratory Rate 18 07/01/18 09:00 Blood Pressure 130/70 07/01/18 09:00 O2 Sat by Pulse Oximetry (%) 98 06/30/18 21:00 Constitutional: Yes: Well Nourished, No Distress, Calm Eyes: Yes: Conjunctiva Clear, EOM Intact, PERRL HENT: Yes: Atraumatic, Normocephalic Neck: Yes: Supple, Trachea Midline Cardiovascular: Yes: Regular Rate and Rhythm Respiratory: Yes: Regular, CTA Bilaterally Gastrointestinal: Yes: Normal Bowel Sounds, Soft, Distention (mild), Tenderness (mild umbilical and RLQ) ...Rectal Exam: Yes: Deferred Musculoskeletal: Yes: WNL Extremities: Yes: WNL Edema: No Peripheral Pulses WNL: Yes Peripheral Pulses: Left Radial: 2+, Right Radial: 2+ Integumentary: Yes: WNL Wound/Incision: Yes: Clean/Dry, Dressing Dry and Intact (3 laproscopic incision entry points) Neurological: Yes: Alert, Oriented ...Motor Strength: WNL Psychiatric: Yes: Alert, Oriented Labs: CBC, BMP 07/01/18 08:20 07/01/18 08:20 INR, PTT INR 1.17 (0.83-1.09) H 06/29/18 07:30 Problem List - Problems (1) Appendicitis Code(s): K37 - UNSPECIFIED APPENDICITIS Qualifiers: Appendicitis type: unspecified Qualified Code(s): K37 - Unspecified appendicitis (2) Right lower quadrant abdominal tenderness without rebound tenderness Code(s): R10.813 - RIGHT LOWER QUADRANT ABDOMINAL TENDERNESS Impression/Plan Impression/Plan: 62 year old female with no significant past medical history initially presented to [facility] with nausea, vomiting and lower abdominal pain and tenderness on 06/28/18. An abdomen/ct montero without contrast shows dilated loops in adjacent to the cecum that could represent an abnormal appendix. She was seen and evaluated by surgery and is now s/p lap appendectomy. Abdominal pain: now improving Abnormal appendix seen on CT imaging. s/p laparoscopic appendectomy 06/30 Post op care: - incentive spirometer - early ambulation - motrin 600mg Q6hr PRN pain - monitor vitals. labs. pain management. bowel regimen. fen regular diet Monitor electrolytes daily GI PPX: protonix prophy: SCDs disposition. full code. Visit type - Emergency Visit Emergency Visit: Yes ED Registration Date: 06/29/18 Care time: The patient presented to the Emergency Department on the above date and was hospitalized for further evaluation of their emergent condition. - New Patient This patient is new to me today: No - Critical Care Critical Care patient: No - Discharge Referral Referred to [facility]C.: No
[2018-07-01] MEDS: POTASSIUM CHLORIDE TABS 20 MEQ TABLET.ER (FP) PO ONE ×2 (15:04→15:34)
--- NOTE | 2018-07-01 17:59 | PN ---
Progress Note, Physician History of Present Illness: Pt s/p lap appy yesterday. Has tolerated diet, ambulating, voiding. Passed gas but no BM yet, still somewhat bloated. No nausea or fevers. Pain managed with alternating tylenol and ibuprofen. Has not needed narcotics. Seen and examined in bed, about to have dinner. She reports feeling better than this morning, still with some incisional pain. K was 3.4 this morning, was unable to tolerate the K+ pill (made her gag). Will have some bananas with dinner. - Current Medication List Current Medications: Active Medications Acetaminophen (Tylenol -) 650 mg PO Q6H [facility] Last Admin: 07/01/18 12:00 Dose: 650 mg Ibuprofen (Motrin -) 600 mg PO Q6H [facility] Last Admin: 07/01/18 15:04 Dose: 600 mg Pantoprazole Sodium (Protonix -) 40 mg PO DAILY [facility] - Objective Vital Signs: Vital Signs Temperature 97.8 F 07/01/18 14:54 Pulse Rate 70 07/01/18 14:54 Respiratory Rate 18 07/01/18 14:54 Blood Pressure 141/78 07/01/18 14:54 O2 Sat by Pulse Oximetry (%) 98 07/01/18 09:00 Constitutional: Yes: Well Nourished, No Distress, Calm Eyes: Yes: Conjunctiva Clear, EOM Intact HENT: Yes: Atraumatic, Normocephalic Gastrointestinal: Yes: Soft, Distention (with tympany), Tenderness (mild incisional, minimal otherwise). No: Tenderness, Epigastrium, Tenderness, Rebound Extremities: No: Cool, Cyanosis Integumentary: Yes: Incision (x3 dressed). No: Jaundice, Rash Wound/Incision: Yes: Steri Strips (under dressings), Dressing Dry and Intact (x3 ). No: Dressing Removed Neurological: Yes: Alert, Oriented Labs: CBC, BMP 07/01/18 08:20 07/01/18 08:20 Problem List - Problems (1) Appendicitis Assessment/Plan: POD1 s/p laparoscopic appendectomy likely early appendicitis pathology pending doing well overall ambulating, voiding, tolerating diet, pain controlled with nonnarcotics abx completed yesterday ok for d/c home per primary team instructions in d/c plan f/u in 2 weeks tegaderm and gauze dressings can come off tomorrow prior to leaving leave steristrips - they will fall off by themselves pt may shower after dressings removed discussed with Shandra Pittman Code(s): K37 - UNSPECIFIED APPENDICITIS Qualifiers: Appendicitis type: acute appendicitis Acute appendicitis type: other Qualified Code(s): K35.890 - Other acute appendicitis without perforation or gangrene; K35.89 - Other acute appendicitis (2) Right lower quadrant abdominal tenderness without rebound tenderness Assessment/Plan: resolved Code(s): R10.813 - RIGHT LOWER QUADRANT ABDOMINAL TENDERNESS (3) Dehydration Assessment/Plan: resolved Code(s): E86.0 - DEHYDRATION (4) Nausea and vomiting Assessment/Plan: resolved Code(s): R11.2 - NAUSEA WITH VOMITING, UNSPECIFIED Qualifiers: Vomiting type: unspecified Vomiting Intractability: non-intractable Qualified Code(s): R11.2 - Nausea with vomiting, unspecified (5) Diarrhea Assessment/Plan: resolved Code(s): R19.7 - DIARRHEA, UNSPECIFIED Qualifiers: Diarrhea type: functional diarrhea Qualified Code(s): K59.1 - Functional diarrhea
[2018-07-02 02:41] VITALS: PULSE 69
[2018-07-02] MEDS: IBUPROFEN 600 MG TABLET (FP) PO SCH ×2 (02:57→10:15)
[2018-07-02] MEDS: ACETAMINOPHEN 325 MG TABLET (FP) PO SCH ×2 (06:22→13:39)
[2018-07-02 08:32] LABS: BASO % 0.3 % (0-2.0); EOS % 1.7 % (0-4.5); HEMATOCRIT 31.9 % (32.4-45.2); LYMPH % 28.9 % (8-40); MCH 30.8 pg (25.7-33.7); MCHC 34.6 g/dl (32.0-36.0); MEAN PLT VOLUME 8.4 fl (7.5-11.1); MONO % 13.2 % (3.8-10.2); NEUT % 55.9 % (42.8-82.8); PLATELET COUNT 205 K/MM3 (134-434); RBC 3.58 M/mm3 (3.60-5.2); RDW 12.5 % (11.6-15.6); WHITE BLOOD COUNT 4.1 K/mm3 (4.0-10.0)
[2018-07-02 08:59] LABS: ALBUMIN 3.2 g/dl (3.4-5.0); ALK PHOS 116 U/L (45-117); ANION GAP 6 MMOL/L (8-16); BILIRUBIN,TOTAL 0.6 mg/dL (0.2-1); BLOOD UREA NITROGEN 10 mg/dL (7-18); CALCIUM 8.3 mg/dL (8.5-10.1); CHLORIDE 103 mmol/L (98-107); CO2 30 mmol/L (21-32); CREATININE 0.7 mg/dL (0.55-1.3); GLUCOSE,RANDOM 98 mg/dL (74-106); MAGNESIUM 2.2 mg/dL (1.8-2.4); POTASSIUM 3.5 mmol/L (3.5-5.1); SGOT/AST 15 U/L (15-37); SGPT/ALT 22 U/L (13-61); SODIUM 139 mmol/L (136-145); TOT PROT 6.8 g/dl (6.4-8.2)
[2018-07-02] MEDS ORDERED: PANTOPRAZOLE 40 MG TABLET (FP) PO SCH (10:00)
--- NOTE | 2018-07-02 12:45 | DS ---
Physical Exam: SUBJECTIVE: Patient seen and examined OBJECTIVE: Vital Signs Period Temp Pulse Resp BP Sys/Vargas Pulse Ox Last 24 Hr 97.6 F-98.2 F 58-78 18-20 133-151/74-82 98 PHYSICAL EXAM GENERAL: The patient is awake, alert, and fully oriented, in no acute distress. HEAD: Normal with no signs of trauma. EYES: PERRL, extraocular movements intact, sclera anicteric, conjunctiva clear. ENT: Ears normal, nares patent, oropharynx clear without exudates, moist mucous membranes. NECK: Trachea midline, full range of motion, supple. LUNGS: Breath sounds equal, clear to auscultation bilaterally, no wheezes, no crackles, no accessory muscle use. HEART: Regular rate and rhythm, S1, S2 without murmur, rub or gallop. ABDOMEN: Soft, slightly tender surrounding surgical incision with dressing in place c/d/i x3. +distended. hypoactive BS. no guarding, no rebound, no hepatosplenomegaly, no masses. EXTREMITIES: 2+ pulses, warm, well-perfused, no edema. NEUROLOGICAL: Cranial nerves II through XII grossly intact. Normal speech, gait not observed. PSYCH: Normal mood, normal affect. SKIN: Warm, dry, normal turgor, no rashes or lesions noted. LABS Laboratory Results - last 24 hr 07/02/18 07/02/18 07:35 07:35 WBC 4.1 RBC 3.58 L Hgb 11.0 Hct 31.9 L MCV 89.0 MCH 30.8 MCHC 34.6 RDW 12.5 Plt Count 205 MPV 8.4 Absolute Neuts (auto) 2.3 Neutrophils % 55.9 D Lymphocytes % 28.9 D Monocytes % 13.2 H Eosinophils % 1.7 D Basophils % 0.3 Nucleated RBC % 0 Sodium 139 Potassium 3.5 Chloride 103 Carbon Dioxide 30 Anion Gap 6 L BUN 10 Creatinine 0.7 Creat Clearance w eGFR > 60 Random Glucose 98 Calcium 8.3 L Phosphorus 3.0 Magnesium 2.2 Total Bilirubin 0.6 AST 15 ALT 22 Alkaline Phosphatase 116 Total Protein 6.8 Albumin 3.2 L HOSPITAL COURSE: Date of Admission:06/29/18 Date of Discharge: 07/02/18 admitting diagnosis Acute Appendicitis Operations: appendectomy 07/01 PRe hospital course Patient is a 62 year old female with no significant past medical history and on no home medications. She presents to [facility] with reports of approximately 10 episodes of nausea, vomiting (nonbilious and nonbloody) with dry heaving and watery diarrhea, nonbloody. She tells me that this started at midnight after going out and eating at a restaurant. Since then she has had lower abdominal pain and tenderness and abdominal cramping. ER labs reveal normal electrolyte panel, K 3.8, normal kidney function. She was noted to have an elevated bili of 1.3 and alk phos of 181. Mild leukocytosis with hemoconcentration and elevated neutrophils. An abdomen/ct scan without contrast shows dilated loops in adjacent to the cecum that could represent an abnormal appendix. She was seen and evaluated by surgery. Notes reviewed. Patient to consider surgical options tomorrow. We will fluid resuscitate patient, monitor vitals q4, manage her pain with IV tylenol and manage nausea/vomiting with zofran and IV hydration. She will be keep as a strict NPO overnight. Further plans per surgery. POC reviewed with patient who is in agreement. Subsequent hospital course admitted to medicine. s/p laprascopic appendectomy performed on 06/30 with no complications. diet advanced and tolerated. d/c home Minutes to complete discharge: 40 Discharge Summary Reason For Visit: APPENDICITIS Current Active Problems Appendicitis (Acute) Dehydration (Acute) Diarrhea (Acute) Nausea and vomiting (Acute) Right lower quadrant abdominal tenderness without rebound tenderness (Acute) Condition: Improved - Instructions Diet, Activity, Other Instructions: Postoperative instructions: You had a laparoscopic appendectomy on 06/30/[address] James Santos of [facility]. Activity: Resume your usual activities gradually, but no heavy exertion or lifting more than 10-15 pounds for 1 month. Remove dressings 48 hours after surgery; sticky tapes underneath will fall off by themselves. You may shower daily starting then, just pat the incision areas dry. No bath or swimming until skin incisions have healed. Eat lightly at first, but advance to your usual diet as tolerated. Pain: For pain, you may use and alternate Tylenol (acetaminophen) 1-2 pills and/ or ibuprofen 200 mg (1-3 pills) every 6 hours each as needed; this means that you can take one OR the other at 3-hour intervals. If you are prescribed a Tylenol/narcotic combination for severe pain, use it instead of plain Tylenol as needed and switch back when your pain starts decreasing. Do not take more than 4000mg of acetaminophen in a day. Take medications as prescribed or indicated on the labeling. Follow-up: Call Dr. Santos's office at [phone] to make your postop appointment (Friday in approximately 2 weeks after surgery). Clinic is held in the [facility] on the first floor of [facility]. Call the office if you have: * increasing pain not responsive to pain medication * fever of 101F or higher * vomiting * unusual or increasing bleeding or drainage from wounds * increasing redness or swelling at wound sites Also, see your primary medical doctor within 1-2 weeks. Referrals: Ghanshyam Mcdonald MD [Primary Care Provider] - James Santos MD [Staff Physician] - 2 Weeks (call for appointment) Disposition: HOME - Home Medications Comprehensive Discharge Medication List: Ambulatory Orders Acetaminophen [Tylenol .Regular Strength -] 650 mg PO Q6H PRN #42 tablet Ibuprofen [Motrin -] 600 mg PO Q6H PRN #21 tablet 07/02/18 This patient is new to me today: Yes Date on this admission: 07/02/18 Emergency Visit: Yes ED Registration Date: 06/29/18 Care time: The patient presented to the Emergency Department on the above date and was hospitalized for further evaluation of their emergent condition. Critical Care patient: No - Discharge Referral Referred to [facility] No
[2018-07-02 19:35] VITALS: BP 130/70; TEMP 98.2
--- NOTE | 2018-07-06 16:01 | PATH ---
Surgical Pathology Report Patient Name: GEGE WHITFIELD [facility]. Rec. #: [id number] /Age/Gender: 1955 (Age: 62) / F Account: [id number] Location: [address] [place] [address] Taken: 06/30/2018 Received: 07/01/2018 Reported: 07/06/2018 Physicians: James Santos M.D. PHYSICIAN EMERGENCY DEPT Specimen(s) Received APPENDIX Clinical History Early appendicitis Final Diagnosis APPENDIX, APPENDECTOMY: APPENDIX WITH FEW ACUTE INFLAMMATORY CELLS INFILTRATE IN THE MUCOSA, SUGGESTIVE OF EARLY ACUTE APPENDICITIS. Comment: Clinical correlation is recommended. Electronically Signed Kelsey Chen M.D. Gross Description Received in formalin, labeled "appendix," is a 6.5 cm. in length vermiform appendix with a stapled margin of resection and moderate attached fat. The serosa is shi-hoyt and smooth. Sectioning reveals focal fecal material within the lumen. The wall of the appendix averages 0.1 cm. in thickness. The specimen is entirely submitted in 5 cassettes. /07/01/2018 [facility]07/01/2018
--- NOTE | 2018-07-14 12:22 | OP ---
DATE OF OPERATION: 06/30/2018 PREOPERATIVE DIAGNOSIS: Early appendicitis. POSTOPERATIVE DIAGNOSIS: Early appendicitis. PROCEDURE PERFORMED: Laparoscopic appendectomy. SURGEON: Chacho Santos MD ANESTHESIA: General endotracheal and local 10 mL of 0.5% Marcaine. ESTIMATED BLOOD LOSS: 5 mL. FLUIDS: Crystalloid, 400 mL. URINE OUTPUT: 250 mL. SPECIMEN: Appendix to Pathology. FINDINGS: Mildly injected appendix, possibly mildly thickened in the mid portion. DISPOSITION: Stable and extubated to PACU. INDICATIONS FOR PROCEDURE: Patient is a 63-year-old female with no significant past medical history, surgical history significant for laparoscopic assisted converted to open partial hysterectomy with BSO and tonsillectomy, who has had intermittent right lower quadrant pain since that time, which had been apparently investigated by her doctors, hernia ruled out. She had an ultrasound she thinks. She tends to attribute it to gas pain or potentially something related to her previous surgery, but it comes and goes without a clear pattern. Around midnight before the day that she presented to the ER, she began having headache followed by nausea, vomiting, diarrhea, and chills with repeating cycles. The same prompted the ER visit and some pain and discomfort with straining to defecate that goes away once she was done. She had thought this episode was related to some bad food that she may have eaten and also had some upper abdominal pain and discomfort along with the vomiting. In the emergency room, she was initially afebrile with a white count of 10.6, which was left-shifted, and very dry by labs with a hemoglobin of 17 and ketones in her urine. She was provided with IV fluids, but no antibiotics, no narcotic pain medication, and a CT was done with IV, but no oral contrast, which showed some retained stool, mildly dilated small and large bowel without a clear obstruction, and the appendix was difficult to identify without the enteral contrast, but the radiologist did not possibly dilated loop of bowel next to the cecum, which could represent an abnormal appendix. On review with Radiology, this appeared to be suggestive of an appendix with a dilated tip possibly almost 10 mg, but the surrounding fat was not clearly abnormal consistent with a possible early appendicitis. Surgery saw her initially in the emergency room, where she was seen and examined, and at the time, had begun feeling chilled with a temperature running approximately 100 degrees and IV fluids going. She was mildly tender in the epigastric area and the right lower quadrant with a well-healed Pfannenstiel scar visible. This was without rebound or guarding. She also had an umbilical laparoscopic scar noted. At the time, she had no more nausea or vomiting, no abdominal distension, and hypoactive bowel sounds. We discussed the possibility of an operation that night, and she preferred to wait under observation and see how she felt the next day. So, she was admitted to the medical service for observation, strict n.p.o., no antibiotics, and no narcotics with IV Tylenol available if necessary for pain and Zofran p.r.n. for nausea. The next day, she was seen again by Surgery and noted to have had a temperature of 101.7 overnight with additional nausea and vomiting and some more diarrhea earlier that morning. She did overall say she felt a little bit better and had had Tylenol with the temperature curve coming down, and she was still unsure about the possibility of having surgery. She was distiller in the right lower quadrant to deep palpation with no rebound or guarding, and her white count was down to 6.5 with labs indicative of her being much better hydrated. White count was still left-shifted, and her potassium was being repleted. At this time, risks, benefits, and alternatives of laparoscopic possible open appendectomy were discussed with the patient including, but not limited to, bleeding, infection, injury to adjacent structures, intestinal leak or injury, intraabdominal abscess, incisional hernia, and need for further procedures. Alternatives inclusive of antibiotics and delayed or no surgery, with risks of that including failure of non-operative therapy, perforation, sepsis, and recurrence were also noted. The patient at this time was still reluctant to proceed with an operation, but after discussing the case with her primary care physician later in the day, she was agreeable to proceeding with laparoscopic possible open appendectomy and signed informed consent. Unfortunately, last evening there was no an operating room available until almost midnight, at which time, she declined to have surgery. Thus, antibiotics, which were started at the time she agreed to surgery were continued from the night before into today, and she is now brought to the operating room for this procedure and antibiotics given on a scheduled basis (cefoxitin). OPERATIVE TECHNIQUE: The patient was brought to the operating room and laid supine on the operating table. Sequential compression devices were applied to bilateral lower extremities, and after induction intubation by Anesthesia, a Kumar catheter was placed in the patients bladder, which was removed at the end of the case. Her abdomen was prepped and draped in sterile fashion, and a small infraumbilical midline incision was made with the scalpel and carried into subcutaneous tissues with electrocautery until the abdominal wall fascia was identified, scored, and elevated with Ron clamps. The peritoneum was entered bluntly with the tip of a clamp, and a fingertip inserted into the abdominal cavity to ensure entry into the abdomen, and some adjacent fatty tissues were noted indicating possibility of some omental adhesions to the area from her previous surgery, but we had clear entry into the abdominal cavity and could visualize the same to the fascia. A stay suture of 0 Vicryl was then placed in a figure-of-8 fashion to the fascia for later closure, and the Candi trocar introduced directly into the abdominal cavity and secured in place with the balloon. The abdomen was insufflated with carbon dioxide, and the laparoscope inserted to inspect the abdominal cavity. We did have to maneuver the camera a little bit around one of the fatty adhesions, at which point, there was also noted to be a single loop of small bowel adherent at one point to the mid-point of her Pfannenstiel incision on the anterior pelvic wall. The patient was placed in reverse Trendelenburg position, and one additional 5-mm port was placed in the left lower quadrant also under direct vision through which cold scissors were used to very carefully take down this bowel adhesion to the anterior pelvic wall under direct vision. The bowel loop was inspected after it had been completely from the wall and noted again to have the adhesion on its surface, but no other injury. Once this had been accomplished, the second 5-mm port was placed under direct vision in the suprapubic area through approximately the same location, and a camera was then switched to the left lower quadrant port. After the patient was also positioned with the right side planed somewhat upward, two graspers were introduced through the operative ports and used to gently manipulate the small bowel medially away from the right lower quadrant of the pelvis. A very little amount of clear yellow fluid was noted in the pelvis, which was later suctioned, and after some manipulation and identifying the tinea of the cecum, the appendix was then also identified dipping down into the pelvis. It was grasped and elevated with one grasper and noted to be long and mildly injected along its length with a possibly slightly larger mid portion than the distal end, which did not appear nearly as large as it had possible looked on the CT scan. The appendix was then grasped in one grasper and a [place] dissector used to create a window at the base of the appendix where it joined the cecum, then, the mesentery, such that the appendix could be transected at the cecal junction with a 45 purple load of the Endo RAFA stapler. Once this was accomplished, the appendix was then held up and additional white load of the Endo RAFA stapler used to transect the mesoappendix. Once the appendix had been entirely , it was temporarily set aside in the right lower quadrant, and the operative field inspected for hemostasis. The staple lines were noted to be completely hemostatic, and again suction risk control specialist was used to suction some of the fluid from the pelvis and a little bit of bloody drainage from the operative site. No irrigation was performed. The appendix was then placed in an EndoCatch bag and drawn up to be removed through the umbilical port, but before that was accomplished, the suprapubic port was removed under direct vision with the camera in the left lower quadrant port. So, the appendix and the Candi trocar were then removed en bloc from the umbilical port, and the abdomen exsufflated of carbon dioxide where the left lower quadrant port and camera were also withdrawn. Patient was returned to neutral position. The appendix was again noted to appear mildly injected and was passed off the table for pathology specimen. Hemostasis was achieved in the port sites with electrocautery where necessary. The Vicryl stitch in the umbilical site was tied to close the fascia there, and the skin was closed with 4-0 Vicryl subcuticular sutures including a running at the umbilical site. Benzoin and Steri-Strips were applied to each incision. Dressings of gauze and Tegaderm were then placed over these. The Kumar catheter was then removed from the patients bladder after measuring the urine output. Counts were correct at the end of the procedure. The patient was then awakened and extubated by Anesthesia and moved back to a stretcher and returned to the recovery room in stable condition having tolerated the procedure well. James Santos M.D. [id number]
== END 2018-07-02 14:55 | disposition home or self-care (01) | DRG 343 ==
LOC: JER 09:16 → JERBED 17:42 → J5S 21:24 → OBSVTOIN 06-29 12:06
PROVIDERS: ADMIT Internal Medicine; ATTEND Internal Medicine
PROC: 0DTJ4ZZ Resection of Appendix, Percutaneous Endoscopic Approach (ICD-10-PCS; principal; 2018-06-30 08:30)
DX: K35.80 Unspecified acute appendicitis (principal); E86.0 Dehydration; R19.7 Diarrhea, unspecified; R10.31 Right lower quadrant pain; R11.2 Nausea with vomiting, unspecified; D72.829 Elevated white blood cell count, unspecified
CPT/HCPCS: 36415; 71045-TC-FY; 74177-TC; 80048; 80053; 81003; 81015; 83036; 83690; 83735; 84100; 85025; 85027; 85610; 86850; 86900; 86901; 87040; 87086; 88304-TC; 93005; 93010; 94760; 99284-25; G0378; J0131; J7030

== ENCOUNTER 2021-02-13 19:00 | Emergency (ER) | payer BC ==
[2021-02-13 19:25] VITALS: BP 128/72; PULSE 67; TEMP 98.5; BMI 22.4
== END 2021-02-13 21:59 | disposition home or self-care (01) ==
LOC: JER 19:00 → JCOVINFU 19:00
DX: U07.1 COVID-19 (principal)
CPT/HCPCS: 99283-25

== ENCOUNTER 2024-01-26 19:36 | Emergency (ER) | payer OTHER, BC ==
[2024-01-26 20:02] VITALS: BP 138/83; PULSE 73; RESP 20; TEMP 98.2; BMI 21.9
[2024-01-27] MEDS: ACETAMINOPHEN 500 MG TABLET (FP) PO ONE (00:21)
== END 2024-01-27 00:53 | disposition home or self-care (01) ==
LOC: JER 19:36
DX: R51.9 Headache, unspecified (principal); M54.2 Cervicalgia; R05.9 Cough, unspecified; J02.9 Acute pharyngitis, unspecified; R09.81 Nasal congestion; V43.62XA Car passenger injured in collision with other type car in traffic accident, initial encounter; Y92.410 Unspecified street and highway as the place of occurrence of the external cause; Z20.822 Contact with and (suspected) exposure to COVID-19
CPT/HCPCS: 0241U-QW; 70450-TC; 71046-TC-FY; 72125-TC; 99285-25